=== PATIENT | female | born 1960 ===

== ENCOUNTER → 2018-04-25 | Outpatient (REF) ==
--- NOTE | 2018-04-25 13:28 | REP ---
Cervical spine four views AP and lateral projections: There are no comparisons. There is anterior discectomy and surgical fusion at the C for five and C5-6 levels. 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 Vertebral body heights and alignment are normal. The facets are normally aligned. The prevertebral soft tissues are normal. The odontoid view is unremarkable. Impression: Postsurgical changes as described. 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 No compression deformity or listhesis. T1. There is never visualized in the lateral projections, being superimposed by the shoulders. Consider follow-up CT or MRI to evaluate this area. Electronically Signed by Karl Galindo MD 04/25/2018 01:21 P
--- NOTE | 2018-04-25 16:25 | REP ---
PARTIAL LUMBAR SPINE, THREE VIEWS: HISTORY: Degenerative disc disease. There is no acute fracture or subluxation. The L2-3 through L5-S1 intervertebral discs are decreased in height consistent with disc degeneration. Osteophytes are present throughout the lumbar spine. IMPRESSION: Degenerative change as described above. Electronically Signed by Wei Flor MD 04/25/2018 04:30 P
== END ==
LOC: M SMT 12:16
PROVIDERS: ATTEND Internal Medicine
DX: Z02.71 Encounter for disability determination (principal)